=== PATIENT | female | born 1960 | race Two or more races ===

== ENCOUNTER 2021-10-14 11:04 | Emergency (ER) | payer MEDICAID, OTHER ==
[~2021-10-14] VITALS: Ht 152.4 cm; Wt 72.6 kg
[2021-10-14] MEDS ORDERED: SODIUM CHLORIDE 0.9% 1,000 ML IVB ONE (11:15)
[2021-10-14] MEDS ORDERED: PANTOPRAZOLE 40 MG/10 ML VIAL INJ IV ONE (11:15)
[2021-10-14] MEDS ORDERED: ONDANSETRON HCL 4 MG/2 ML VIAL IV ONE (11:15)
[2021-10-14 16:08] LABS: Basophils # (auto) 0 10 ^3/uL (0-0.2); Basophils % (auto) 1.4 % (0.0-2.0); Eosinophils # (auto) 0 10 ^3/uL (0-0.8); Eosinophils % (auto) 0.3 % (0.0-7.0); Hematocrit 41.3 % (36.0-46.0); Hemoglobin 13.5 g/dL (12.2-16.2); Lymphocytes # (auto) 0.9 10 ^3/uL (0.4-5.4); Lymphocytes % (auto) 33.3 % (10.0-50.0); Mean Corpuscular Hemoglobin 22.6 pg (28.0-32.0); Mean Corpuscular Hgb Conc. 32.7 g/dL (32.0-36.0); Mean Corpuscular Volume 69.2 fL (80.0-100.0); Monocytes # (auto) 0.4 10 ^3/uL (0-1.3); Monocytes % (auto) 13.8 % (0.0-12.0); Neutrophils # (auto) 1.4 10 ^3/uL (1.6-8.6); Neutrophils % (auto) 51.2 % (37.0-80.0); Nucleated Red Blood Cells % 0.2 %; Red Blood Cells 5.97 10^6/uL (4.0-5.20); Red Cell Distribution Width 15.7 % (11.8-14.3); White Blood Cell 2.8 10^3/uL (4.4-10.8)
[2021-10-14 16:23] LABS: Calcium 8.7 mg/dL (8.5-10.1); Potassium 3.6 mmol/L (3.5-5.1)
[2021-10-14 16:27] LABS: BUN/Creatinine Ratio 10.7; Bilirubin, Total 0.3 mg/dL (0.2-1.0); Total Protein 7.6 g/dL (6.4-8.2)
[2021-10-14] MEDS ORDERED: TRAM-297 PO (17:02)
[2021-10-14 20:19] VITALS: BP 130/78
== END 2021-10-14 20:33 | disposition home or self-care (01) ==
LOC: ER 11:04
DX: R10.13 Epigastric pain (principal); D25.9 Leiomyoma of uterus, unspecified; R11.2 Nausea with vomiting, unspecified; Z87.891 Personal history of nicotine dependence; Z90.89 Acquired absence of other organs
CPT/HCPCS: 36415; 74176; 76705; 80053; 82150; 83690; 85025; 93005; 96374; 96375; 99285; C9113; J2405

== ENCOUNTER 2023-07-01 15:29 | Emergency (ER) | payer MEDICAID, OTHER ==
[~2023-07-01] VITALS: Ht 152.4 cm; Wt 61.2 kg
[~2023-07-01 15:29] MED LIST: TRAM-297 PO
[2023-07-01] MEDS ORDERED: NAP500T PO (20:59)
[2023-07-01] MEDS ORDERED: LIDO5PAD8 EX (20:59)
[2023-07-01 21:34] VITALS: BP 142/82; PULSE 66; RESP 18; TEMP 98.6; O2SAT 96
== END 2023-07-01 21:35 | disposition home or self-care (01) ==
LOC: ER 15:29
DX: S39.012A Strain of muscle, fascia and tendon of lower back, initial encounter (principal); I10 Essential (primary) hypertension; Z90.89 Acquired absence of other organs; Z87.891 Personal history of nicotine dependence; Z79.899 Other long term (current) drug therapy; X50.1XXA Overexertion from prolonged static or awkward postures, initial encounter; Y93.89 Activity, other specified; Y92.89 Other specified places as the place of occurrence of the external cause; Y99.8 Other external cause status
CPT/HCPCS: 72131

== ENCOUNTER → 2023-09-16 | Outpatient (CLI) | payer OTHER ==
[~2023-09-16] MED LIST changes: +LIDO5PAD8 EX; +NAP500T PO
[2023-09-16 09:32] LABS: Basophils # (auto) 0 10 ^3/uL (0-0.2); Basophils % (auto) 0.7 % (0.0-2.0); Eosinophils # (auto) 0.1 10 ^3/uL (0-0.8); Lymphocytes # (auto) 1.2 10 ^3/uL (0.4-5.4); Monocytes # (auto) 0.5 10 ^3/uL (0-1.3)
[2023-09-16 09:33] LABS: Hematocrit 39.6 % (36.0-46.0); Hemoglobin 12.7 g/dL (12.2-16.2); Mean Corpuscular Hemoglobin 22.9 pg (28.0-32.0); Mean Corpuscular Hgb Conc. 32.1 g/dL (32.0-36.0); Mean Corpuscular Volume 71.4 fL (80.0-100.0); Neutrophils # (auto) 2.6 10 ^3/uL (1.6-8.6); Neutrophils % (auto) 58.3 % (37.0-80.0); Nucleated Red Blood Cells % 0.1 %; Red Blood Cells 5.55 10^6/uL (4.0-5.20); Red Cell Distribution Width 16.6 % (11.8-14.3); White Blood Cell 4.5 10^3/uL (4.4-10.8)
[2023-09-16 10:20] LABS: Alanine Aminotransferase 21 U/L (7-40); Albumin 4.2 g/dL (3.2-4.8); Alkaline Phosphatase 93 U/L (46-116); Anion Gap 5 (5-15); Aspartate Aminotransferase 25 U/L (13-40); BUN/Creatinine Ratio 10.8 (10.0-20.0); Bilirubin, Total 0.2 mg/dL (0.2-1.0); Blood Urea Nitrogen 7 mg/dL (9-23); Calcium 9.2 mg/dL (8.5-10.1); Carbon Dioxide 29 mmol/L (20-30); Chloride 107 mmol/L (98-107); Cholesterol 137 mg/dL (< 200); Glucose 108 mg/dL (74-106); HDL Cholesterol 54 mg/dL (40-59); LDL Cholesterol 76 mg/dL (< 100); Potassium 4.2 mmol/L (3.5-5.1); Sodium 141 mmol/L (136-145); Triglycerides 78 mg/dL (< 150)
[2023-09-16 10:21] LABS: Total Protein 6.5 g/dL (5.7-8.2)
== END | disposition home or self-care (01) ==
LOC: LAB 09:06
PROVIDERS: ATTEND Student in an Organized Health Care Education/Training Program
DX: I10 Essential (primary) hypertension (principal); R53.83 Other fatigue; M79.10 Myalgia, unspecified site
CPT/HCPCS: 36415; 80053; 80061; 85025

== ENCOUNTER → 2023-12-10 | Outpatient (CLI) | payer OTHER | END | disposition home or self-care (01) | LOC: LAB 09:21 | PROVIDERS: ATTEND Student in an Organized Health Care Education/Training Program | DX: E03.9 Hypothyroidism, unspecified (principal); M79.7 Fibromyalgia | CPT/HCPCS: 36415; 84443 ==